=== PATIENT | male | born 1960 | race Caucasian/White ===

== ENCOUNTER 2019-12-27 06:24 | Inpatient (IN) ==
[2019-12-27] MEDS ORDERED: Piperacillin/Tazobactam 3.375 GM in 0.9 % Sodium Chloride Mini Bag 100 ML IVPB ONE (06:54)
[2019-12-27] MEDS ORDERED: Ringers Solution, Lactated 1,000 ML IVC SCH ×2 (07:00→07:15)
[2019-12-27] MEDS ORDERED: *HR* HYDROmorphone (PF) 1 MG/ML SYRINGE IVP PRN (07:01)
[2019-12-27] MEDS ORDERED: Ondansetron 4 MG/2 ML VIAL IVP ONE (07:01)
[2019-12-27] MEDS ORDERED: 0.9 % Sodium Chloride 500 ML IVC PRN (07:02)
[2019-12-27] MEDS ORDERED: Naloxone 0.4 MG/ML INJ IVP PRN ×2 (07:02→11:48)
[2019-12-27] MEDS ORDERED: *HR* Promethazine 25 MG/ML VIAL IVP PRN ×2 (07:02→11:48)
[2019-12-27] MEDS ORDERED: *HR* Midazolam HCl 2 MG/2 ML VIAL ONE (07:15)
[2019-12-27] MEDS ORDERED: *HR* FentaNYL (PF) 100 MCG/2 ML VIAL ONE ×2 (07:15→08:37)
[2019-12-27] MEDS ORDERED: Bupivacaine-MPF 0.5% 25 ML, FentaNYL (PF) 250 MCG in 0.9 % Sodium Chloride 80 ML EP SCH (07:15)
[2019-12-27] MEDS ORDERED: *HR* Propofol 200 MG/20 ML VIAL IVP ONE (07:16)
[2019-12-27] MEDS ORDERED: Lidocaine/EPI 1:100k 1% 20 ML VIAL ONE (08:03)
[2019-12-27] MEDS ORDERED: Lidocaine -MPF 4% 5 ML AMPUL ONE (08:08)
[2019-12-27] MEDS ORDERED: *HR* Rocuronium Bromide 50 MG/5 ML VIAL ONE (08:27)
[2019-12-27] MEDS ORDERED: Dexamethasone 4 MG/ML VIAL ONE (08:27)
[2019-12-27] MEDS ORDERED: *HR* Succinylcholine 200 MG/10 ML VIAL IVP ONE (08:27)
[2019-12-27] MEDS ORDERED: Ondansetron 4 MG/2 ML VIAL ONE (08:27)
[2019-12-27] MEDS ORDERED: EPHEDrine 50 MG/ML VIAL ONE (08:30)
[2019-12-27] MEDS ORDERED: Bupivacaine-MPF 0.25% 10 ML VIAL ONE (09:04)
[2019-12-27] MEDS ORDERED: Neostigmine Methylsulfate 3 MG/3 ML SYRINGE ONE (09:56)
[2019-12-27] MEDS ORDERED: *HR* Meperidine 25 MG/ML SYRINGE IVP PRN (10:49)
[2019-12-27] MEDS ORDERED: *HR* Meperidine 25 MG/ML SYRINGE ONE (10:49)
[2019-12-27] MEDS ORDERED: Ondansetron 4 MG/2 ML VIAL IVP PRN (11:48)
[2019-12-27] MEDS: Ringers Solution, Lactated 1,000 ML IVC SCH ×2 (12:28→14:05)
[2019-12-27] MEDS: Bupivacaine-MPF 0.5% 25 ML, FentaNYL (PF) 250 MCG in 0.9 % Sodium Chloride 80 ML EP SCH (16:58)
[2019-12-28 02:10] LABS: Basophils % 0.1 %; Hematocrit 36.4 % (37.5-50.1); Immature Granulocytes % 0.3 % (0-4); Lymphocytes # 0.7 K/mcL (0.6-4.6); Lymphocytes % 9.3 %; Mean Corpuscular Hemoglobin 28.7 pg (28.0-33.3); Mean Corpuscular Volume 87.1 fL (83.0-100.0); Mean Platelet Volume 9.5 fL (9.4-12.4); Monocytes # 0.7 K/mcL (0.0-1.3); Monocytes % 8.6 %; Neutrophils # 6.5 K/mcL (1.6-8.9); Platelet Count 216 K/mcL (140-400); Red Blood Count 4.18 M/mcL (4.19-5.50); Red Cell Distribution Width 13.7 % (11.5-14.5); Segmented Neutrophils % 81.7 %; White Blood Count 7.9 K/mcL (4.3-11.1)
[2019-12-28 02:35] LABS: BUN/Creatinine Ratio 13 (6-26); Blood Urea Nitrogen 13 mg/dL (6-20); Calcium 8.6 mg/dL (8.6-10.3); Carbon Dioxide 26 mEq/L (23-29); Chloride 103 mEq/L (98-107); Glucose 90 mg/dL (70-105); Osmolality,Calculated 282 (280-300); Potassium 4.3 mEq/L (3.5-5.1); Sodium 136 mEq/L (136-145); eGFR For African Americans > 60 (> 60); eGFR For Non-African Americans > 60 (> 60)
[2019-12-28] MEDS: Ringers Solution, Lactated 1,000 ML IVC SCH (03:17)
[2019-12-28] MEDS: Bupivacaine-MPF 0.5% 25 ML, FentaNYL (PF) 250 MCG in 0.9 % Sodium Chloride 80 ML EP SCH (06:24)
[2019-12-28] MEDS ORDERED: Pantoprazole 40 MG VIAL IVP SCH (09:00)
[2019-12-28] MEDS: D5% in 0.45% NACL 1,000 ML IVC SCH (16:06)
[2019-12-29] MEDS: Bupivacaine-MPF 0.5% 25 ML, FentaNYL (PF) 250 MCG in 0.9 % Sodium Chloride 80 ML EP SCH (03:28)
[2019-12-29] MEDS: D5% in 0.45% NACL 1,000 ML IVC SCH (12:27)
[2019-12-29] MEDS ORDERED: D5% in 0.45% NACL 1,000 ML IVC SCH (13:11)
[2019-12-30] MEDS: Bupivacaine-MPF 0.5% 25 ML, FentaNYL (PF) 250 MCG in 0.9 % Sodium Chloride 80 ML EP SCH (00:02)
[2019-12-30] MEDS ORDERED: Acetaminophen 325 MG TABLET PO PRN (10:49)
[2019-12-30] MEDS: *HR* OxyCODONE/APAP 5/325 TABLET PO PRN (17:30)
[2019-12-31] MEDS: *HR* OxyCODONE/APAP 5/325 TABLET PO PRN ×2 (00:59→09:01)
[2019-12-31 07:57] LABS: Basophils % 0.9 %; Eosinophils # 0.4 K/mcL (0.0-0.6); Eosinophils % 8.2 %; Hematocrit 39.1 % (37.5-50.1); Hemoglobin 12.6 g/dL (12.9-16.9); Immature Granulocytes % 0.2 % (0-4); Lymphocytes # 0.9 K/mcL (0.6-4.6); Lymphocytes % 21.1 %; Mean Corpuscular HGB Conc 32.2 g/dL (31.6-35.5); Mean Corpuscular Hemoglobin 29.2 pg (28.0-33.3); Mean Corpuscular Volume 90.7 fL (83.0-100.0); Mean Platelet Volume 9.6 fL (9.4-12.4); Monocytes # 0.3 K/mcL (0.0-1.3); Monocytes % 6.2 %; Neutrophils # 2.8 K/mcL (1.6-8.9); Platelet Count 214 K/mcL (140-400); Red Blood Count 4.31 M/mcL (4.19-5.50); Red Cell Distribution Width 13.2 % (11.5-14.5); Segmented Neutrophils % 63.4 %; White Blood Count 4.4 K/mcL (4.3-11.1)
[2019-12-31 08:15] LABS: BUN/Creatinine Ratio 10 (6-26); Blood Urea Nitrogen 9 mg/dL (6-20); Calcium 8.7 mg/dL (8.6-10.3); Carbon Dioxide 29 mEq/L (23-29); Chloride 103 mEq/L (98-107); Glucose 91 mg/dL (70-105); Osmolality,Calculated 288 (280-300); Potassium 4.1 mEq/L (3.5-5.1); Sodium 140 mEq/L (136-145); eGFR For African Americans > 60 (> 60); eGFR For Non-African Americans > 60 (> 60)
[2019-12-31 09:47] VITALS: BP 116/70
== END 2019-12-31 11:55 | disposition home or self-care (01) | DRG 330 ==
LOC: SAMDAY 06:24 → 3ANU 12:06
PROVIDERS: ADMIT Surgery; ATTEND Surgery